=== PATIENT | female | born 1955 | race Caucasian/White ===

== ENCOUNTER 2018-02-03 07:43 | Day surgery (SDC) | payer BC, SELFPAY ==
[2018-02-01 12:09] VITALS: BMI 25.6
--- NOTE | 2018-02-03 | PATH_ITS ---
[facility] Accession Number: [id number] . 01 Material submitted: . CONE BIOPSY . 01 Clinical history: . CONE BIOPSY LEEP . 02 Diagnosis: Cervix, LEEP Biopsy: Squamous mucosa with patchy reactive atypia; negative for squamous dysplasia and malignancy. No endocervical tissue or definite transformation zone identified. Previous biopsy reviewed; findings do not correlate. Please see comment. MRV/02/06/2018 . 02 Comment: This patient's previous cervical biopsy slide (cervix at 7-8 o'clock; [id number]; 12/28/2017) was reviewed and high-grade squamous intraepithelial lesion (HSIL) is present in the previous biopsy. . No changes suggestive of previous instrumentation are identified in the current LEEP specimen. . A message was left with Dr. Bustillos's office staff at approximately 3:00 p.m. on 02-06-18. . 02 Electronically signed: . Remedios Trejo MD, Pathologist NPI- [id number] . 01 Gross description: . Received in formalin, labeled cone biopsy, anterior LEEP, long suture endocervical, are four pieces of cervical tissue. Piece #1 (1.6 x 1.1 x 0.3 cm) contains a long suture indicating 12 o'clock. Piece #2 (2.2 x 0.6 x 0.4 cm) contains a short suture indicating 6 o'clock. Pieces #3 (0.6 x 0.5 x 0.2 cm) and #4 (1.2 x 0.8 x 0.5 cm) are unoriented. The mucosa is crowder-pink, smooth and shiny. The resection margins are pale davison and finely granular. No nodules, masses or lesions are identified. Pieces #3 and #4 cannot be oriented. Ink code: black-deep; blue-radial; orange-os/endocervical canal; green-resection margin. Section code: Piece #1, radially sectioned and submitted clockwise from 9 o'clock-(A1) 9 o'clock to 12 o'clock; (A2) 12 o'clock to 3 o'clock; piece #2, radially sectioned and entirely submitted clockwise from 3 o'clock to 9 o'clock-(A3) 3 o'clock to 6 o'clock; (A4) 6 o'clock to 9 o'clock; (A5) piece #3, trisected; (A6) piece #4, serially sectioned. Specimen entirely submitted. ([id number]) /MRV . 02 Pathologist provided ICD-10: N87.1 . 02 CPT . 209469 Specimen Comment: A duplicate report has been generated due to demographic updates. Performed at: 01 [facility] [address] [facility], [place], [place] [id number] MD Rony Staples MD Phone: [phone] Performed at: [address] [facility] [address] [place], [place] [id number] MD Jaylen Dooley MD Phone: [phone]
[2018-02-03 08:01] VITALS: BMI 25.1
[2018-02-03 08:08] VITALS: BP 125/73; PULSE 67; RESP 20; TEMP 36.1; O2SAT 97
[2018-02-03] MEDS: LACTATED RINGERS 1,000 ML 42 ML IV (08:10)
--- NOTE | 2018-02-03 08:46 | SUR.OPER ---
Lithotomy on padded OR bed, head on pillow, arms secured on padded arm boards at <90 degrees abduction. Legs secured in padded yellow fins stirrups.
--- NOTE | 2018-02-03 08:53 | PM.PREOP ---
Pre-operative Note Interval Note Pre-op Check: Yes History & Physical exam performed today by Physician Changes: No
--- NOTE | 2018-02-03 08:55 | P.HP_ITS ---
History of Present Illness Date Patient Seen: 02/03/18 Time Patient Seen: 08:53 Chief complaint: [id number] Narrative: Patient is a 62-year-old who presents for LEEP cone biopsy of the cervix due to CRYSTAL 2-3 confirmed by colposcopic biopsy Patient History Medical History HPV test positive (Acute) History of PFTs (Acute) Hyperlipidemia (Acute) Obstructive lung disease (Acute) Postmenopausal (Acute) Surgical History History of heart surgery (Resolved) History of mandibular surgery (Resolved) History of third molar tooth extraction (Resolved) Family & Social History Social History: household members spouse Tobacco & Substance use: Smoking Status Former smoker alcohol intake current Substance Use Type does not use Meds Home Medications Medication Instructions Recorded Confirmed Type estradiol [Estrace] 1 gm VAGINAL SEE INSTRUCTIONS #30 04/05/16 02/03/18 Rx gm estradiol [Vagifem] 10 mcg VAGINAL SEE INSTRUCTIONS 11/18/16 02/03/18 Rx #20 tab Allergies Allergy/AdvReac Type Severity Reaction Status Date / Time Iodinated Contrast- Oral and Allergy Intermediate HIVES Verified 02/03/18 07:59 IV Dye [IODINATED CONTRAST MEDIA - IV DYE] Exam Vital Signs (past 8 hours): - 02/03/18 08:08 Temperature 97.0 F L Pulse Rate 67 Respiratory Rate 20 Blood Pressure 125/73 Pulse Oximetry 97 Oxygen Delivery Method Room Air Narrative Exam Narrative: HEENT: No thyromegaly, no anterior cervical or supraclavicular lymphadenopathy. Lungs:Clear to auscultation bilaterally, no wheezes. Cardiovascular: Regular rate and rhythm, no murmurs, rubs, or gallops. Abdomen: No scars. No hepatosplenomegaly. No masses palpable. External genitalia: Normal Vagina: Normal Cervix: Normal Bimanual exam: 6 Week size uterus. Mobile.] Rectal: No masses. 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 The risks including bleeding, and infection. She understands these risks and agrees to proceed. A full capital P AR-Q was held and consent form was signed.
[2018-02-03 09:35] VITALS: BP 109/66; PULSE 68; RESP 20; TEMP 36.2; O2SAT 100
[2018-02-03 09:40] VITALS: BP 110/71; PULSE 66; RESP 99; TEMP 36.2; O2SAT 16
[2018-02-03 09:45] VITALS: BP 117/73; PULSE 60; RESP 20; TEMP 36.4; O2SAT 100
[2018-02-03 09:50] VITALS: BP 115/72; PULSE 60; RESP 16; TEMP 36.4; O2SAT 99
[2018-02-03 10:15] VITALS: BP 123/75; PULSE 62; RESP 20; TEMP 36.2; O2SAT 96
--- NOTE | 2018-02-04 10:38 | P.OP_ITS ---
Operative Date/Time/Diagnoses Date of procedure: 02/03/18 Time of procedure: 09:45 Pre-op diagnosis: CRYSTAL 2-3 by colposcopic biopsy Post-op diagnosis: same Procedure: Procedures Operation Date: 02/03/18 08:45 Actual Procedures Side Surgeon p Conization Of Cervix - Cone Biopsy Treasure Bustillos MD s LEEP Procedure Treasure Bustillos MD Indications: CRYSTAL 2-3 by colposcopic biopsy Surgeon: Treasure Bustillos Anesthesia Type: General (LMA) Operative Notes Findings: Lugol's light areas surrounding the cervical os. Closure Type: not applicable Specimen(s): other (Anterior lip of the cervix tagged with a long suture, posterior lip of the cervix tagged with a short suture, endocervical component) Applied: catheter (In and out) Estimated blood loss (mL): 5 Blood products transfused: none Procedure in detail: After informed consent was obtained, the patient was taken to the operating room where she was placed in the dorsal supine position. After adequate LMA general anesthesia was achieved, she was placed in the dorsal lithotomy position, and prepped and draped in the usual sterile fashion. A plastic coated bivalve speculum was placed into the vagina. A plastic coated single-tooth tenaculum was placed on the anterior lip of the cervix. The cervix was coated with Lugol solution. There were Lugol's light areas surrounding the cervical os. Using the 1.5 cm loop with settings at 60 cut and 40 cautery, a swipe across the anterior lip of the cervix and posterior lip of the cervix removed the Lugol's light areas. A 3rd swipe in the endocervical canal was performed. The Bovie was used for hemostasis. The specimens were tagged with a long suture on the anterior lip of the cervix, and a short suture on the posterior lip of the cervix. The endocervical component was and tagged. The plastic coated single-tooth tenaculum was removed from the anterior lip of the cervix. The plastic coated bivalve speculum was removed from the vagina . Sponge, lap, and instrument counts were correct x2. The patient tolerated the procedure well, and was taken to PACU in stable condition. Complications: none Post-operative Condition: stable Disposition: PACU Plan for aftercare: Home after recovery
== END 2018-02-03 10:25 | disposition home or self-care (01) ==
PROVIDERS: Visit Provider Obstetrics & Gynecology
PROC: 0UBC7ZZ Excision of Cervix, Via Natural or Artificial Opening (ICD-10-PCS; CPT 57520; principal; 2018-02-03 08:45)
PROC: 0UBC7ZZ Excision of Cervix, Via Natural or Artificial Opening (ICD-10-PCS; CPT 57522; 2018-02-03 08:45)
DX: N87.1 Moderate cervical dysplasia (principal); R87.810 Cervical high risk human papillomavirus (HPV) DNA test positive; E78.5 Hyperlipidemia, unspecified; J44.9 Chronic obstructive pulmonary disease, unspecified; Z87.891 Personal history of nicotine dependence
CPT/HCPCS: 57522; J1100; J1885; J2405

== ENCOUNTER 2018-12-09 12:37 | Emergency (ER) | payer BC, SELFPAY ==
[2018-12-09 12:40] VITALS: BP 191/83; PULSE 71; RESP 20; TEMP 35.9; O2SAT 100
--- NOTE | 2018-12-09 12:46 | DI.RAD.S_ITS ---
PROCEDURE: XR CHEST 1V INDICATIONS: chest pain TECHNIQUE: One view of the chest was acquired. COMPARISON: [facility], , CHEST 2 VIEW, 03/20/2016, 12:13. None. FINDINGS: Surgical changes and devices: None. Lungs and pleura: Lungs are clear. No pleural effusions or pneumothorax. Mediastinum: Mediastinal contours appear normal. Heart size is normal. Bones and chest wall: No suspicious bony lesions. Overlying soft tissues appear unremarkable. IMPRESSION: Negative chest. No acute cardiopulmonary process is suspected. Dictated by: Omar Rodríguez M.D. on 12/09/2018 at 12:53 Approved by: Omar Rodríguez M.D. on 12/09/2018 at 12:54
[2018-12-09 13:30] VITALS: BP 142/70; PULSE 68; RESP 14; O2SAT 95
--- NOTE | 2018-12-09 13:30 | ED.CHESTPAIN ---
HPI - Chest Pain General Chief Complaint: Chest Pain Stated Complaint: chest pain/high b/p x45 minutes Time Seen by Provider: 12/09/18 12:45 Source: patient and family Mode of arrival: ambulatory Limitations: no limitations History of Present Illness HPI narrative: 63-year-old female nonsmoker with history of nonspecific pericardial effusion presents with a chief complaint of hypertension and anterior chest pain for 45 minutes prior to arrival. She denies any provocation, palliation or radiation of the pain. She denies any dizziness, weakness or lightheadedness. She denies nausea or vomiting. She denies any diaphoresis. She denies any exertional change in her symptoms. She historically does not have high blood pressure and this is very concerning to her. She denies recent travel, history of clot. MD complaint: chest pain Duration: constant Pain location: left chest Severity: mild Quality: sharp Pain radiation: none Relieving factors: nothing Exacerbating factors: nothing Related Data On Oral Contraceptives: No Previous Rx's Medication Instructions Recorded estradiol [Estrace] 1 gm VAGINAL SEE INSTRUCTIONS #30 04/05/16 gm estradiol 10 mcg vaginal tablet 10 mcg VAGINAL 2XW #8 tab 03/10/18 Allergies Allergy/AdvReac Type Severity Reaction Status Date / Time Iodinated Contrast- Oral and Allergy Intermediate HIVES Verified 03/09/18 16:44 IV Dye [IODINATED CONTRAST MEDIA - IV DYE] Review of Systems Constitutional Denies chills, Denies fever(s), Denies lethargy and Denies weakness Eyes Denies change in vision, Denies eye discharge, Denies irritation and Denies loss of vision ENT Ears, Nose, Mouth, and Throat: Denies change in voice, Denies neck pain and Denies sore throat Cardiovascular Reports chest pain, Denies irregular heart rhythm, Denies lightheadedness, Denies palpitations, Denies dyspnea, Denies dyspnea on exertion and Denies orthopnea Respiratory Denies cough, Denies dyspnea, Denies dyspnea on exertion and Denies wheezing Gastrointestinal Gastrointestinal: Denies abdominal pain, Denies change in bowel habits, Denies diarrhea, Denies nausea and Denies vomiting Genitourinary Denies hematuria, Denies flank pain, Denies urinary incontinence and Denies urinary urgency Musculoskeletal Denies neck pain Integumentary/Breasts Denies pruritus, Denies erythema, Denies rash and Denies wounds Neurologic Denies confusion, Denies loss of vision and Denies weakness Psychiatric Denies anxiety, Denies confusion, Denies depression, Denies homicidal ideation and Denies suicidal ideation Endocrine Denies palpitations Hematologic/Lymphatic Denies easy bruising Allergic/Immunologic Denies wheezing PFSH Medical History HPV test positive (Acute) History of PFTs (Acute) Hyperlipidemia (Acute) Obstructive lung disease (Acute) Postmenopausal (Acute) Surgical History History of heart surgery (Resolved) History of mandibular surgery (Resolved) History of third molar tooth extraction (Resolved) Social History household members: spouse Smoking Status: Former smoker alcohol intake: current Social History household members: spouse Smoking Status: Former smoker alcohol intake: current Exam Narrative Exam Narrative: GENERAL: [63] year old patient appears stated age. Well-nourished, well-developed patient, in mild distress. HEAD: Atraumatic. Normocephalic. EYES: Pupils equal round and reactive. Extraocular motions intact. No scleral icterus. No injection or drainage. ENT: Nose without bleeding, purulent drainage. Throat without erythema, tonsillar hypertrophy or exudate. Airway patent. NECK: Trachea midline. Non tender CARDIOVASCULAR: Regular rate and rhythm without murmurs, gallops, or rubs. RESPIRATORY: Clear to auscultation. Breath sounds equal bilaterally. No wheezes, rales, or rhonchi. GASTROINTESTINAL: Abdomen soft, non-tender, nondistended. EXTREMITIES: No edema or joint tenderness. BACK: Nontender without deformity or crepitance. No flank tenderness. NEURO: AOx3. SKIN: No rash or erythema of visible areas Initial Vital Signs Initial Vital Signs: Vital Signs Temperature 96.7 F L 12/09/18 12:40 Pulse Rate 71 12/09/18 12:40 Respiratory Rate 20 12/09/18 12:40 Blood Pressure 191/83 H 12/09/18 12:40 Pulse Oximetry 100 12/09/18 12:40 Course Course Narrative: Bedside ultrasound suggest perhaps a small pericardial effusion, for this reason and the potential of PE patient has CT angiogram of the chest ordered after she is pretreated for possible allergy to iodine Orders Ordered: Discontinued Medications Diphenhydramine HCl (Benadryl) 25 mg IV NOW ONE Stop: 12/09/18 14:02 Last Admin: 12/09/18 14:22 Dose: 25 mg Methylprednisolone (Solu-Medrol 125 Mg Vial) 125 mg IV NOW ONE Stop: 12/09/18 14:02 Last Admin: 12/09/18 14:22 Dose: 125 mg Reevaluation(s) Reevaluation #1: Over course of visit patient's blood pressure returns to normal and symptoms resolved. Vital Signs - 8 hr 12/09/18 12:40 Temperature 96.7 F L Pulse Rate 71 Respiratory Rate 20 Blood Pressure 191/83 H Pulse Oximetry 100 MDM - Chest Pain Lab Data Result diagrams: 12/09/18 13:25 12/09/18 13:25 Lab Results 12/09/18 12/09/18 12/09/18 Range/Units 13:25 13:25 13:25 WBC 3.6 L (4.5-11.0) X10^3/uL RBC 4.54 (4.0-5.2) X10^6/uL Hgb 13.4 (12.0-16.0) g/dL Hct 40.0 (36-46) % MCV 88.0 (80-100) fL MCH 29.4 (26-34) PG MCHC 33.4 (30-36) % RDW 13.0 (11.6-14.8) % Plt Count 129 L (150-400) X10^3/uL Neut % (Auto) 64.8 (50-75) % Lymph % (Auto) 24.0 L (25-40) % Holmes % (Auto) 8.0 (3-14) % Eos % (Auto) 2.4 (2-4) % Baso % (Auto) 0.8 (0-2) % Neut # (Auto) 2300 (9042-0676) /uL Lymph # (Auto) 900 L (4074-7991) /uL Holmes # (Auto) 300 (0-900) /uL Eos # (Auto) 100 (0-450) /uL Baso # (Auto) 0 (0-100) /uL PT 10.7 (10.1-12.7) SECONDS INR 0.9 (0.9-1.3) APTT 33 (26.4-36.2) SECONDS Sodium 142 (137-145) mmol/L Potassium 4.2 (3.4-5.1) mmol/L Chloride 104 (98-107) mmol/L Carbon Dioxide 29 (22-32) mmol/L BUN 17 (7-17) mg/dL Creatinine 0.70 (0.52-1.04) mg/dL Estimated GFR > 60.0 (>60) mL/min BUN/Creatinine Ratio 24.3 H (6-22) Glucose 100 (80-110) mg/dL Calcium 9.8 (8.4-10.2) mg/dL Total Bilirubin 0.7 (0.2-1.3) mg/dL AST 27 (14-36) IU/L ALT 20 (9-52) IU/L Alkaline Phosphatase 87 (38-126) U/L Total Creatine Kinase 117 (30-135) U/L CK-MB (CK-2) 1.14 (<2.37) ng/mL CK-MB (CK-2) Rel Index 1.0 L (1.5-5.0) % Troponin I < 0.012 (0.01-0.034) ng/mL Total Protein 7.9 (6.3-8.2) g/dL Albumin 4.8 (3.5-5.0) g/dL Globulin 3.1 (1.7-4.1) g/dL Albumin/Globulin Ratio 1.5 (1.0-2.8) Lipase 148 (23-300) U/L Imaging Data CT scan - chest: Radiologist's impression: [place] [address] CT Scan Report Signed Patient: Karley Cobian LMR#: [id number] : 5Acct:[id number] Age/Sex: 63 / FDate of Service: 12/09/18 Loc: ED Accession Number: [id number] Procedure: CT angio chest PE protocol Ordering Provider: Anant Pedro D.O. PROCEDURE: CT ANGIO CHEST PE PROTOCOL INDICATIONS: chest pain, SOB, ?pericardial effusion on bedside US TECHNIQUE: After the administration of intravenous contrast, 2 mm thick sections acquired from the pulmonary apices to the posterior costophrenic angles. 3-dimensional maximum intensity projection (MIP) coronal and sagittal reformats were then acquired through the thorax. For radiation dose reduction, the following was used: automated exposure control, adjustment of mA and/or kV according to patient size. COMPARISON: None. FINDINGS: Image quality: Diagnostic. Pulmonary arteries: Pulmonary arteries are normal in size, and demonstrate no intraluminal filling defects to suggest central pulmonary embolism. Lungs and pleura: Lungs are clear. No pleural effusions or pneumothorax. Central and peripheral airways are patent. Mild atelectasis is evident within the posterior bilateral lung bases. No lung masses or definite pulmonary nodules are evident. Mediastinum: Heart size is normal, without pericardial effusion. No mediastinal or hilar adenopathy. Thoracic aorta is normal in caliber and enhancement. Mild distal esophageal wall thickening is evident. No significant hiatal hernia is appreciated. Are Bones and chest wall: No suspicious bony lesions. Ribs and thoracic spine appear intact throughout. Thyroid gland is not enlarged or adequately evaluated. No axillary or supraclavicular adenopathy. Abdomen: Visualized upper abdominal solid organs appear normal in the early arterial phase of enhancement. IMPRESSION: 1. No evidence of pulmonary emboli. 2. No pericardial effusion is evident. 3. No acute cardiopulmonary process is apparent. 4. Mild thickening of the wall of the distal esophagus may be related to reflux esophagitis. Please correlate clinically. Dictated by: Omar Rodríguez M.D. on 12/09/2018 at 14:00 Approved by: Omar Rodríguez M.D. on 12/09/2018 at 14:03 [facility] Narrative Medical decision making narrative: Multiple etiologies for patient's symptoms considered including: [cardiac ischemia vs. pericardial effusion vs. PE vs. HTN vs. other] Patient's symptoms improved or duration of stay with above-stated therapies. Findings and discharge diagnosis discussed with patient/family followed by verbalization of understanding Return precautions discussed with patient/family whom verbalize understanding. Discharge Plan Departure Patient Disposition: Home Clinical Impression: Atypical chest pain Discharge Date/Time: 12/09/18 16:02 Interventions: ED Discharge Assessment Last Done: 12/09/18 16:01 Instructions: DI for Atypical Chest Pain Activity Restrictions/Additional Instructions: *You have been diagnosed with [atypical chest pain] *What to do: *Take medications as directed *Follow up with your primary care provider as planned *Return to ER if you should have any new, worsening or concerning symptoms Prescriptions: No Action estradiol [Estrace] 0.01 % cream 1 gm Vaginal SEE INSTRUCTIONS Qty: 30 RF: 3 estradiol [Vagifem] 10 mcg tablet 10 mcg Vaginal 2XW Qty: 8 RF: 11 Referrals: Lisbeth Vasquez MD [Primary Care Provider] -
[2018-12-09 13:31] LABS: Add Manual Diff / Slide Review NO; Basophils Absolute Auto 0 /uL (0-100); Basophils Percent Auto 0.8 % (0-2); Eosinophils Absolute Auto 100 /uL (0-450); Eosinophils Percent Auto 2.4 % (2-4); Hemoglobin 13.4 g/dL (12.0-16.0); Lymphocytes Absolute Auto 900 /uL (1100-4500); Mean Corpuscular HGB Conc 33.4 % (30-36); Mean Corpuscular Hemoglobin 29.4 PG (26-34); Monocytes Absolute Auto 300 /uL (0-900); Neutrophils Absolute Auto 2300 /uL (1500-7000); Neutrophils Percent Auto 64.8 % (50-75); Platelet Count 129 X10^3/uL (150-400); Red Blood Cell Count 4.54 X10^6/uL (4.0-5.2); White Blood Cell Count 3.6 X10^3/uL (4.5-11.0)
[2018-12-09 13:40] LABS: INR 0.9 (0.9-1.3); Prothrombin Time 10.7 SECONDS (10.1-12.7)
[2018-12-09 13:43] LABS: PTT Partial Thromboplastin Tim 33 SECONDS (26.4-36.2)
[2018-12-09 13:44] LABS: Alanine Aminotransferase 20 IU/L (9-52); Albumin 4.8 g/dL (3.5-5.0); Albumin Globulin Ratio 1.5 (1.0-2.8); Alkaline Phosphatase 87 U/L (38-126); Aspartate Aminotransferase 27 IU/L (14-36); BUN Creatinine Ratio 24.3 (6-22); Bilirubin Total 0.7 mg/dL (0.2-1.3); Blood Urea Nitrogen 17 mg/dL (7-17); Calcium 9.8 mg/dL (8.4-10.2); Carbon Dioxide 29 mmol/L (22-32); Chloride 104 mmol/L (98-107); Creatine Kinase 117 U/L (30-135); Estimated Glomerular Filt Rate > 60.0 mL/min (>60); Globulin 3.1 g/dL (1.7-4.1); Glucose 100 mg/dL (80-110); HEMOLYSIS < 15 (0-50); Lipase 148 U/L (23-300); Potassium 4.2 mmol/L (3.4-5.1); Sodium 142 mmol/L (137-145); Total Protein 7.9 g/dL (6.3-8.2)
[2018-12-09 13:56] LABS: Troponin I < 0.012 ng/mL (0.01-0.034)
[2018-12-09 13:59] LABS: Creatine Kinase MB 1.14 ng/mL (<2.37)
[2018-12-09 14:00] VITALS: BP 157/68; PULSE 60; RESP 13
--- NOTE | 2018-12-09 14:01 | DI.CT.S_ITS ---
PROCEDURE: CT ANGIO CHEST PE PROTOCOL INDICATIONS: chest pain, SOB, ?pericardial effusion on bedside US TECHNIQUE: After the administration of intravenous contrast, 2 mm thick sections acquired from the pulmonary apices to the posterior costophrenic angles. 3-dimensional maximum intensity projection (MIP) coronal and sagittal reformats were then acquired through the thorax. For radiation dose reduction, the following was used: automated exposure control, adjustment of mA and/or kV according to patient size. COMPARISON: None. FINDINGS: Image quality: Diagnostic. Pulmonary arteries: Pulmonary arteries are normal in size, and demonstrate no intraluminal filling defects to suggest central pulmonary embolism. Lungs and pleura: Lungs are clear. No pleural effusions or pneumothorax. Central and peripheral airways are patent. Mild atelectasis is evident within the posterior bilateral lung bases. No lung masses or definite pulmonary nodules are evident. Mediastinum: Heart size is normal, without pericardial effusion. No mediastinal or hilar adenopathy. Thoracic aorta is normal in caliber and enhancement. Mild distal esophageal wall thickening is evident. No significant hiatal hernia is appreciated. Are Bones and chest wall: No suspicious bony lesions. Ribs and thoracic spine appear intact throughout. Thyroid gland is not enlarged or adequately evaluated. No axillary or supraclavicular adenopathy. Abdomen: Visualized upper abdominal solid organs appear normal in the early arterial phase of enhancement. IMPRESSION: 1. No evidence of pulmonary emboli. 2. No pericardial effusion is evident. 3. No acute cardiopulmonary process is apparent. 4. Mild thickening of the wall of the distal esophagus may be related to reflux esophagitis. Please correlate clinically. Dictated by: Omar Rodríguez M.D. on 12/09/2018 at 14:00 Approved by: Omar Rodríguez M.D. on 12/09/2018 at 14:03
[2018-12-09] MEDS: methylPREDNISolone 125 MG/2 ML VIAL IV (14:22)
[2018-12-09] MEDS: diphenhydrAMINE 50 MG/ML VIAL 25 MG IV (14:22)
[2018-12-09 15:00] VITALS: BP 142/74; PULSE 61; RESP 15; O2SAT 98
[2018-12-09 15:30] VITALS: BP 130/75; PULSE 60
--- NOTE | 2018-12-10 07:54 | ED_ITS ---
HPI - Chest Pain General Chief Complaint: Chest Pain Stated Complaint: chest pain/high b/p x45 minutes Time Seen by Provider: 12/09/18 12:45 Source: patient and family Mode of arrival: ambulatory Limitations: no limitations History of Present Illness HPI narrative: 63-year-old female nonsmoker with history of nonspecific pericardial effusion presents with a chief complaint of hypertension and anterior chest pain for 45 minutes prior to arrival. She denies any provocation, palliation or radiation of the pain. She denies any dizziness, weakness or lightheadedness. She denies nausea or vomiting. She denies any diaphoresis. She denies any exertional change in her symptoms. She historically does not have high blood pressure and this is very concerning to her. She denies recent travel, history of clot. MD complaint: chest pain Duration: constant Pain location: left chest Severity: mild Quality: sharp Pain radiation: none Relieving factors: nothing Exacerbating factors: nothing Related Data On Oral Contraceptives: No Previous Rx's Medication Instructions Recorded estradiol [Estrace] 1 gm VAGINAL SEE INSTRUCTIONS #30 04/05/16 gm estradiol 10 mcg vaginal tablet 10 mcg VAGINAL 2XW #8 tab 03/10/18 Allergies Allergy/AdvReac Type Severity Reaction Status Date / Time Iodinated Contrast- Oral and Allergy Intermediate HIVES Verified 03/09/18 16:44 IV Dye [IODINATED CONTRAST MEDIA - IV DYE] Review of Systems Constitutional Denies chills, Denies fever(s), Denies lethargy and Denies weakness Eyes Denies change in vision, Denies eye discharge, Denies irritation and Denies loss of vision ENT Ears, Nose, Mouth, and Throat: Denies change in voice, Denies neck pain and Denies sore throat Cardiovascular Reports chest pain, Denies irregular heart rhythm, Denies lightheadedness, Denies palpitations, Denies dyspnea, Denies dyspnea on exertion and Denies orthopnea Respiratory Denies cough, Denies dyspnea, Denies dyspnea on exertion and Denies wheezing Gastrointestinal Gastrointestinal: Denies abdominal pain, Denies change in bowel habits, Denies diarrhea, Denies nausea and Denies vomiting Genitourinary Denies hematuria, Denies flank pain, Denies urinary incontinence and Denies urinary urgency Musculoskeletal Denies neck pain Integumentary/Breasts Denies pruritus, Denies erythema, Denies rash and Denies wounds Neurologic Denies confusion, Denies loss of vision and Denies weakness Psychiatric Denies anxiety, Denies confusion, Denies depression, Denies homicidal ideation and Denies suicidal ideation Endocrine Denies palpitations Hematologic/Lymphatic Denies easy bruising Allergic/Immunologic Denies wheezing PFSH Medical History HPV test positive (Acute) History of PFTs (Acute) Hyperlipidemia (Acute) Obstructive lung disease (Acute) Postmenopausal (Acute) Surgical History History of heart surgery (Resolved) History of mandibular surgery (Resolved) History of third molar tooth extraction (Resolved) Social History household members: spouse Smoking Status: Former smoker alcohol intake: current Social History household members: spouse Smoking Status: Former smoker alcohol intake: current Exam Narrative Exam Narrative: GENERAL: [63] year old patient appears stated age. Well- nourished, well-developed patient, in mild distress. HEAD: Atraumatic. Normocephalic. EYES: Pupils equal round and reactive. Extraocular motions intact. No scleral icterus. No injection or drainage. ENT: Nose without bleeding, purulent drainage. Throat without erythema, tonsillar hypertrophy or exudate. Airway patent. NECK: Trachea midline. Non tender CARDIOVASCULAR: Regular rate and rhythm without murmurs, gallops, or rubs. RESPIRATORY: Clear to auscultation. Breath sounds equal bilaterally. No wheezes, rales, or rhonchi. GASTROINTESTINAL: Abdomen soft, non-tender, nondistended. EXTREMITIES: No edema or joint tenderness. BACK: Nontender without deformity or crepitance. No flank tenderness. NEURO: AOx3. SKIN: No rash or erythema of visible areas Initial Vital Signs Initial Vital Signs: Vital Signs Temperature 96.7 F L 12/09/18 12:40 Pulse Rate 71 12/09/18 12:40 Respiratory Rate 20 12/09/18 12:40 Blood Pressure 191/83 H 12/09/18 12:40 Pulse Oximetry 100 12/09/18 12:40 Course Course Narrative: Bedside ultrasound suggest perhaps a small pericardial effusion, for this reason and the potential of PE patient has CT angiogram of the chest ordered after she is pretreated for possible allergy to iodine Orders Ordered: Discontinued Medications Diphenhydramine HCl (Benadryl) 25 mg IV NOW ONE Stop: 12/09/18 14:02 Last Admin: 12/09/18 14:22 Dose: 25 mg Methylprednisolone (Solu-Medrol 125 Mg Vial) 125 mg IV NOW ONE Stop: 12/09/18 14:02 Last Admin: 12/09/18 14:22 Dose: 125 mg Reevaluation(s) Reevaluation #1: Over course of visit patient's blood pressure returns to normal and symptoms resolved. Vital Signs - 8 hr 12/09/18 12:40 Temperature 96.7 F L Pulse Rate 71 Respiratory Rate 20 Blood Pressure 191/83 H Pulse Oximetry 100 MDM - Chest Pain Lab Data Result diagrams: 12/09/18 13:25 12/09/18 13:25 Lab Results 12/09/18 12/09/18 12/09/18 Range/Units 13:25 13:25 13:25 WBC 3.6 L (4.5-11.0) X10^3/uL RBC 4.54 (4.0-5.2) X10^6/uL Hgb 13.4 (12.0-16.0) g/dL Hct 40.0 (36-46) % MCV 88.0 (80-100) fL MCH 29.4 (26-34) PG MCHC 33.4 (30-36) % RDW 13.0 (11.6-14.8) % Plt Count 129 L (150-400) X10^3/uL Neut % (Auto) 64.8 (50-75) % Lymph % (Auto) 24.0 L (25-40) % Nobles % (Auto) 8.0 (3-14) % Eos % (Auto) 2.4 (2-4) % Baso % (Auto) 0.8 (0-2) % Neut # (Auto) 2300 (0774-4639) /uL Lymph # (Auto) 900 L (3727-2772) /uL Nobles # (Auto) 300 (0-900) /uL Eos # (Auto) 100 (0-450) /uL Baso # (Auto) 0 (0-100) /uL PT 10.7 (10.1-12.7) SECONDS INR 0.9 (0.9-1.3) APTT 33 (26.4-36.2) SECONDS Sodium 142 (137-145) mmol/L Potassium 4.2 (3.4-5.1) mmol/L Chloride 104 (98-107) mmol/L Carbon Dioxide 29 (22-32) mmol/L BUN 17 (7-17) mg/dL Creatinine 0.70 (0.52-1.04) mg/dL Estimated GFR > 60.0 (>60) mL/min BUN/Creatinine Ratio 24.3 H (6-22) Glucose 100 (80-110) mg/dL Calcium 9.8 (8.4-10.2) mg/dL Total Bilirubin 0.7 (0.2-1.3) mg/dL AST 27 (14-36) IU/L ALT 20 (9-52) IU/L Alkaline Phosphatase 87 (38-126) U/L Total Creatine Kinase 117 (30-135) U/L CK-MB (CK-2) 1.14 (<2.37) ng/mL CK-MB (CK-2) Rel Index 1.0 L (1.5-5.0) % Troponin I < 0.012 (0.01-0.034) ng/mL Total Protein 7.9 (6.3-8.2) g/dL Albumin 4.8 (3.5-5.0) g/dL Globulin 3.1 (1.7-4.1) g/dL Albumin/Globulin Ratio 1.5 (1.0-2.8) Lipase 148 (23-300) U/L Imaging Data CT scan - chest: Radiologist's impression: [place] [address] CT Scan Report Signed Patient: Karley Cobian LMR#: [id number] : 5Acct:[id number] Age/Sex: 63 / FDate of Service: 12/09/18 Loc: ED Accession Number: [id number] Procedure: CT angio chest PE protocol Ordering Provider: Anant Pedro D.O. PROCEDURE: CT ANGIO CHEST PE PROTOCOL INDICATIONS: chest pain, SOB, ?pericardial effusion on bedside US TECHNIQUE: After the administration of intravenous contrast, 2 mm thick sections acquired from the pulmonary apices to the posterior costophrenic angles. 3-dimensional maximum intensity projection (MIP) coronal and sagittal reformats were then acquired through the thorax. For radiation dose reduction, the following was used: automated exposure control, adjustment of mA and/or kV according to patient size. COMPARISON: None. FINDINGS: Image quality: Diagnostic. Pulmonary arteries: Pulmonary arteries are normal in size, and demonstrate no intraluminal filling defects to suggest central pulmonary embolism. Lungs and pleura: Lungs are clear. No pleural effusions or pneumothorax. Central and peripheral airways are patent. Mild atelectasis is evident within the posterior bilateral lung bases. No lung masses or definite pulmonary nodules are evident. Mediastinum: Heart size is normal, without pericardial effusion. No mediastinal or hilar adenopathy. Thoracic aorta is normal in caliber and enhancement. Mild distal esophageal wall thickening is evident. No significant hiatal hernia is appreciated. Are Bones and chest wall: No suspicious bony lesions. Ribs and thoracic spine appear intact throughout. Thyroid gland is not enlarged or adequately evaluated. No axillary or supraclavicular adenopathy. Abdomen: Visualized upper abdominal solid organs appear normal in the early arterial phase of enhancement. IMPRESSION: 1. No evidence of pulmonary emboli. 2. No pericardial effusion is evident. 3. No acute cardiopulmonary process is apparent. 4. Mild thickening of the wall of the distal esophagus may be related to reflux esophagitis. Please correlate clinically. Dictated by: Omar Rodríguez M.D. on 12/09/2018 at 14:00 Approved by: Omar Rodríguez M.D. on 12/09/2018 at 14:03 [facility] Narrative Medical decision making narrative: Multiple etiologies for patient's symptoms considered including: [cardiac ischemia vs. pericardial effusion vs. PE vs. HTN vs. other] Patient's symptoms improved or duration of stay with above-stated therapies. Findings and discharge diagnosis discussed with patient/family followed by tiffanie balization of understanding Return precautions discussed with patient/family whom verbalize understanding. Discharge Plan Departure Patient Disposition: Home Clinical Impression: Atypical chest pain Discharge Date/Time: 12/09/18 16:02 Interventions: ED Discharge Assessment Last Done: 12/09/18 16:01 Instructions: DI for Atypical Chest Pain Activity Restrictions/Additional Instructions: *You have been diagnosed with [atypical chest pain] *What to do: *Take medications as directed *Follow up with your primary care provider as planned *Return to ER if you should have any new, worsening or concerning symptoms Prescriptions: No Action estradiol [Estrace] 0.01 % cream 1 gm Vaginal SEE INSTRUCTIONS Qty: 30 RF: 3 estradiol [Vagifem] 10 mcg tablet 10 mcg Vaginal 2XW Qty: 8 RF: 11 Referrals: Lisbeth Vasquez MD [Primary Care Provider] -
== END 2018-12-09 16:02 | disposition home or self-care (01) ==
PROVIDERS: Emergency Provider Emergency Medicine; PCP Internal Medicine
DX: R07.89 Other chest pain (principal)
CPT/HCPCS: 36415; 36591; 71045; 71275; 80053; 82550; 82553; 83690; 84484; 85025; 85610; 85730; 93005; 93010; 96374; 96375; 99283; 99284; J1200; J2930; Q9967

== ENCOUNTER → 2022-11-22 11:21 | Outpatient (CLI) | payer MEDICARE, SELFPAY ==
--- NOTE | 2022-11-22 | DI.MG.S_ITS ---
BILATERAL DIGITAL SCREENING MAMMOGRAM 3D/2D WITH CAD: 11/22/2022 CLINICAL: Routine screening. Baseline exam. No prior exams were available for comparison. Both breasts are heterogeneously dense, which may obscure small masses (category c / 51-75% glandular tissue). Current study was also evaluated with a Computer Aided Detection (CAD) system. There is a focal asymmetry in the left breast at 1 o'clock middle depth. No other significant masses, calcifications, or other findings are seen in either breast. IMPRESSION: INCOMPLETE: NEEDS ADDITIONAL IMAGING EVALUATION The focal asymmetry in the left breast is indeterminate. Additional views with possible ultrasound are recommended. Based on the Tyrer Cuzick model (a risk assessment model) the patient's lifetime risk is 8.8% and her 10 year risk is 4.9%. According to the ACR, ACS, and NCCN guidelines, an annual breast MRI exam along with mammogram is recommended if the patient's lifetime risk is 20% or greater. This exam was interpreted at Station ID: [id number]. NOTE: For mammograms, a report in lay terms will be sent to the patient. Approximately 15% of breast malignancies will not be visualized mammographically. In the management of a palpable breast mass, a negative mammogram must not discourage biopsy of a clinically suspicious lesion. Electronically Signed By: Evens Joaquin M.D. lc/:11/22/2022 13:36:46 letter sent: Additional Imaging Needed ACR BI-RADS Category 0: Incomplete 3340F
--- NOTE | 2022-11-22 | DI.RAD.S_ITS ---
PROCEDURE: XR DEXA AXIAL SKELETON INDICATIONS: asymptomatic menopausal state COMPARISON: None. FINDINGS: This blank DEXA report has been sent in error by the PACS system. The correct and complete report will be forthcoming in 1-2 days. Thank you for your patience and understanding. Dictated by: Paco Seaman M.D. on 11/22/2022 at 13:35 Approved by: Paco Seaman M.D. on 11/22/2022 at 13:36
--- NOTE | 2022-11-22 11:37 | DI.DEXA.S_ITS ---
Bone Density Report Name: BRIAN CHRISTENSEN Age: 67 Sex: Female Ethnicity: White Date of : 1955 Indication: postmenopausal; screening for osteoporosis; Referring Provider: SERGIO SANCHEZ Study: Bone densitometry was performed. Exam Date: November 22, 2022 Accession number: [id number] Bone Density: Region BMD T-score Z-score Classification AP Spine(L1-L4) 1.017 -0.3 1.7 Normal Femoral Neck (Left) 0.836 -0.1 1.6 Normal Total Hip (Left) 0.984 0.3 1.8 Normal Femoral Neck (Right) 0.846 0.0 1.7 Normal Total Hip (Right) 0.979 0.3 1.7 Normal Total Hip Mean 0.982 0.3 1.8 Normal World Health Organization criteria for BMD impression classify patients as: Normal (T-score at or above -1.0), Osteopenia (T-score between -1.0 and -2.5), or Osteoporosis (T-score at or below -2.5). 10-year Fracture Risk: FRAX not reported because: All T-scores for Spine Total, Hip Total, Femoral Neck at or above -1.0 Impression: The patient has normal bone mass. Discussion: BONE DENSITY IS ABOVE THE MINIMUM DESIRABLE LEVEL AT ALL SKELETAL SITES TESTED. This patient?s bone mineral density is above the minimum desirable level (T-score -1.0 or better) at all sites measured. The patient should follow a healthful lifestyle (good nutrition with adequate calcium and vitamin D, and appropriate weight-bearing exercise). Follow-Up: Consider repeating this study in 5 years or sooner if there is some new clinical indication. Reported by: GABRIELA LEON M.D. on 11/22/2022 11:45:00 AM.
== END ==
PROVIDERS: PCP Internal Medicine; Referring Provider Internal Medicine; Visit Provider Internal Medicine
DX: Z12.31 Encounter for screening mammogram for malignant neoplasm of breast (principal); Z78.0 Asymptomatic menopausal state; Z13.820 Encounter for screening for osteoporosis
CPT/HCPCS: 77063; 77067; 77080

== ENCOUNTER 2022-12-15 13:54 | Day surgery (SDC) | payer MEDICARE, SELFPAY ==
[2022-12-15 14:15] VITALS: BP 152/74; PULSE 64; RESP 17; TEMP 36.4; O2SAT 98; BMI 25.8
--- NOTE | 2022-12-15 14:18 | PM.HP.1 ---
History of Present Illness History of Present Illness Date Patient Seen: 12/15/22 Chief complaint: Colonoscopy Narrative: Screening colonoscopy, known tracheal stenosis [facility] Medical History (Updated 12/24/18 @ 00:00 by ) History of PFTs HPV test positive Hyperlipidemia Obstructive lung disease Postmenopausal Surgical History History of heart surgery History of mandibular surgery History of third molar tooth extraction Social History household members: spouse Smoking Status: Former smoker alcohol intake: current Meds Home Medications and Allergies Home Medications Medication Instructions Recorded Confirmed Type estradiol 10 mcg vaginal tablet 10 mcg vaginal 2XW #24 tabs 08/31/22 Rx Allergies Allergy/AdvReac Type Severity Reaction Status Date / Time Iodinated Contrast Media Allergy Intermediate HIVES Verified 12/15/22 14:10 [IODINATED CONTRAST MEDIA - IV DYE] Exam Narrative Exam Narrative: Oropharynx free of lesions Chest clear to auscultation percussion Cardiac exam reveals no S3 or murmur Assessment & Plan Assessment & Plan narrative: Need for screening colonoscopy. Risks, benefits, alternatives have been explained. She also has a history of tracheal stenosis which will be closely monitored by Anesthesia
--- NOTE | 2022-12-15 14:19 | P.OP.COLON_ITS ---
Operative Date/Time/Diagnoses Date of procedure: 12/15/22 Pre-op diagnosis: See indication and findings Procedure & Clinicians Study performed: Colonoscopy Indications: Screening Surgeon: Michael Acuña Procedure Notes Procedure in detail: After informed consent was obtained the patient was placed in left lateral d ecubitus position. The video colonoscope was introduced the rectum slowly advanced cecum. On slow withdrawal mucosa was carefully examined. The scope was removed. The patient tolerated procedure well. Preparation was good. Blood loss none Complications none Sedation mac Findings 1. Normal colonoscopy to cecum although very tortuous colon. Follow-up colonoscopy should be in 10 years
[2022-12-15] MEDS: LACTATED RINGERS 1,000 ML 150 ML IV (14:29)
[2022-12-15 15:02] VITALS: BP 87/43; PULSE 60; RESP 10; TEMP 36.2; O2SAT 95
[2022-12-15 15:07] VITALS: BP 90/45; PULSE 58; RESP 10; O2SAT 95
[2022-12-15 15:12] VITALS: BP 100/54; PULSE 52; RESP 12; O2SAT 96
[2022-12-15 15:17] VITALS: BP 104/65; PULSE 55; RESP 16; O2SAT 96
[2022-12-15 15:23] VITALS: BP 118/70; PULSE 54; RESP 14; O2SAT 96
== END 2022-12-15 15:37 | disposition home or self-care (01) ==
PROVIDERS: PCP Internal Medicine; Referring Provider Internal Medicine Gastroenterology; Visit Provider Internal Medicine Gastroenterology
PROC: 0DJD8ZZ Inspection of Lower Intestinal Tract, Via Natural or Artificial Opening Endoscopic (ICD-10-PCS; CPT 45378; principal; 2022-12-15 15:00)
DX: Z12.11 Encounter for screening for malignant neoplasm of colon (principal)
CPT/HCPCS: G0121; J2704

== ENCOUNTER → 2022-12-27 09:30 | Outpatient (CLI) | payer MEDICARE, SELFPAY ==
--- NOTE | 2022-12-27 | DI.RAD.S_ITS ---
PROCEDURE: XR HAND RT 2V INDICATIONS: Pain in right finger(s) TECHNIQUE: Two views of the hand acquired. COMPARISON: None. FINDINGS: Bones: Mild focal flexion of the third distal interphalangeal joint, with a possible nondisplaced intra-articular fracture at the dorsal base of the 3rd distal phalanx. Carpal bones are normally aligned. No suspicious bony lesions. Soft tissues: No suspicious soft tissue calcifications. IMPRESSION: Suspected nondisplaced intra-articular fracture at the dorsal base of the 3rd distal phalanx with mild flexion of the distal interphalangeal joint. Approved by: Joe Clark M.D. on 12/27/2022 at 14:56
--- NOTE | 2022-12-27 | DI.MG.S_ITS ---
UNILATERAL LEFT DIGITAL DIAGNOSTIC MAMMOGRAM 3D/2D WITH ADDITIONAL VIEWS: 12/27/2022 CLINICAL: Additional evaluation requested from prior study. Comparison is made to exam dated: 11/22/2022 mammogram - [facility]. The left breast is heterogeneously dense, which may obscure small masses (category c / 51-75% glandular tissue). There is a focal asymmetry in the left breast at 1 o'clock middle depth. This is not seen in additional views. No other significant masses or calcifications are seen in the breast. IMPRESSION: BENIGN There is no mammographic evidence of malignancy. The focal asymmetry in the left breast is consistent with fibroglandular tissue and is benign. A 1 year screening mammogram is recommended. Exam findings were conveyed to the patient. Based on the Tyrer Cuzick model (a risk assessment model) the patient's lifetime risk is 8.8% and her 10 year risk is 4.9%. According to the ACR, ACS, and NCCN guidelines, an annual breast MRI exam along with mammogram is recommended if the patient's lifetime risk is 20% or greater. This exam was interpreted at Station ID: [id number]. NOTE: For mammograms, a report in lay terms will be sent to the patient. Approximately 15% of breast malignancies will not be visualized mammographically. In the management of a palpable breast mass, a negative mammogram must not discourage biopsy of a clinically suspicious lesion. Electronically Signed By: Adarsh Oliveira M.D. slc/:12/27/2022 10:04:24 letter sent: Normal Exam ACR BI-RADS Category 2: Benign Finding(s) 3342F
== END ==
PROVIDERS: PCP Internal Medicine; Referring Provider Internal Medicine; Visit Provider Internal Medicine
DX: R92.8 Other abnormal and inconclusive findings on diagnostic imaging of breast (principal); M79.644 Pain in right finger(s); N64.89 Other specified disorders of breast
CPT/HCPCS: 73120; 77065; G0279

== ENCOUNTER → 2024-02-07 16:55 | Outpatient (CLI) | payer MEDICARE, SELFPAY ==
--- NOTE | 2024-02-07 16:56 | DI.RAD.S_ITS ---
PROCEDURE: XR CHEST 2V INDICATIONS: Shortness of breath TECHNIQUE: 2 views of the chest were acquired. COMPARISON: None. FINDINGS: Surgical changes and devices: None. Lungs and pleura: Lungs are clear. No pleural effusions or pneumothorax. Mediastinum: Mediastinal contours are normal. Heart size is normal. Bones and chest wall: No suspicious bony abnormalities. Soft tissues appear unremarkable. IMPRESSION: No acute cardiopulmonary abnormality is seen. Dictated by: Rajat Chaney M.D. on 02/08/2024 at 9:30 Approved by: Rajat Chaney M.D. on 02/08/2024 at 9:30
== END ==
PROVIDERS: PCP Internal Medicine; Referring Provider Internal Medicine; Visit Provider Internal Medicine
DX: R06.02 Shortness of breath (principal)
CPT/HCPCS: 71046

== ENCOUNTER 2025-01-01 09:04 | Day surgery (SDC) | payer MEDICARE, SELFPAY ==
[2024-12-25 12:02] VITALS: BMI 26.5
--- NOTE | 2025-01-01 | PATH_ITS ---
[facility] Accession Number: [id number] No. of containers..02 Tissue . 01 Material submitted: . PART A: cervix - CONE BX PART B: vulva - VULVAR BX @ 5 OCLOCK . 01 Diagnosis: A. UTERINE CERVIX, COLD KNIFE CONIZATION (SUTURE AT 12 O'CLOCK): High-grade squamous intraepithelial lesion (CRYSTAL-2 to CRYSTAL-3/moderate to severe squamous dysplasia). Background low-grade squamous intraepithelial lesion (CRYSTAL-1/mild dysplasia) and previous biopsy changes. Negative for glandular dysplasia and invasive carcinoma. Surgical margins: High-grade squamous intraepithelial lesion focally involves the inked/cauterized ectocervical margin. Remaining margins are not involved. Please see microscopic description. . B. VULVA, 5 O'CLOCK, BIOPSY: High-grade squamous intraepithelial lesion (GILDA-2/moderate dysplasia). Please see microscopic description. Negative for invasive carcinoma. High-grade squamous intraepithelial lesion (GILDA-2/moderate dysplasia) extends to one tissue edge. [facility] 01/10/2025 1052 Local . 01 Comment: B. As part of ongoing corporate quality assurance manager, part B is also reviewed by Dr. Patricio Ly, who agrees with the interpretation. . 01 Electronically signed: . Akanksha Florez MD, Pathologist NPI- [id number] . 01 Gross description: . A. Received in formalin, labeled with two patient identifiers and cold knife cone biopsy, suture at 12 o'clock, and consists of a 2.7 x 2.1 x 1.2 cm, intact, oriented cervical cone. The stitch is designated as 12 o'clock. The cervical mucosa is davison-white with a 0.8 x 0.6 cm slight area of ulceration located at the 5-6 o'clock aspect. There is a 0.6 cm, slit-like, patent os. The endocervical margin is inked blue. The ectocervical cauterized margin is inked black. The specimen is radially sectioned and entirely submitted in cassettes: A1: 12-3 o'clock. A2: 3-6 o'clock. A3: 6-9 o'clock. A4: 9-12 o'clock. B. Received in formalin, labeled with two patient identifiers and vulvar biopsy at 5 o'clock, and consists of a 1.2 x 0.5 x 0.2 cm, white, smooth, glistening, irregular soft tissue which is inked, trisected, and entirely submitted in cassette B1. ([id number]) /[facility] 01/05/2025 1042 Local . 01 Microscopic: . A. P16 immunostain is performed (blocks A2, A3, And A4) and supports the diagnosis. . B. To better evaluate the areas of high-grade squamous intraepithelial lesion (GILDA-2/moderate dysplasia) and to assess the tissue edge involvement, multiple deeper levels and immunostains are performed with the following results: p16 is abnormal with weak overexpression on the areas of GILDA-2, the proliferation marker Ki-67 appears focally mildly increased labeling dysplastic cells above the basal cell layer, and p53 shows rare weak expression, unmutated/wild type. These immunohistochemical results along with the morphology support the diagnosis. . . * This test was developed and the performance characteristics were validated by [facility]. It has not been cleared or approved by the U.S. Food and Drug Administration. . 01 Pathologist provided ICD-10: N87.9, N87.1, D06.9 . 01 CPT . 797072, 627023, B63590, F23681 Specimen Comment: A courtesy copy of this report has been sent to [facility] Performed at: [address] [facility], [place], [place] [id number] MD Rony Staples MD Phone: [phone]
[2025-01-01 09:26] VITALS: BP 143/65; PULSE 58; RESP 16; TEMP 36.5; O2SAT 100; BMI 26.2
--- NOTE | 2025-01-01 09:37 | P.HPOB_ITS ---
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 She reports feeling well, no concerns today. [facility] Medical History (Updated 12/25/24 @ 15:31 by Diamond Ruiz RN) Stenosis of trachea Acid reflux Paroxysmal atrial flutter Personal history of cervical dysplasia Hyperlipidemia Obstructive lung disease History of PFTs Postmenopausal HPV test positive Surgical History (Updated 12/26/24 @ 08:49 by Diamond Ruiz RN) Hx of colonoscopy (12/15/22) S/P pericardiocentesis History of cardiac radiofrequency ablation (09/25/24) History of loop electrical excision procedure (LEEP) (~2018) History of mandibular surgery History of third molar tooth extraction Social History household members: spouse Smoking Status: Former smoker alcohol intake: current Meds Home Medications and Allergies Home Medications ?Medication ?Instructions ?Recorded ?Confirmed ?Type estradiol 10 mcg vaginal tablet 10 mcg vaginal 2XW #24 tabs 03/28/23 01/01/25 Rx apixaban 5 mg tablet (Eliquis) 5 mg PO BID 10/16/24 History atorvastatin 40 mg tablet 40 mg PO DAILY 10/16/2406/26 History estradiol 0.01% (0.1 mg/gram) 1 g vaginal 2XW #42.5 gr ams 10/16/24 01/01/25 Rx vaginal cream Allergies Allergy/AdvReac Type Severity Reaction Status Date / Time Iodinated Contrast Media Allergy Intermediate HIVES Verified 01/01/25 09:18 (IODINATED CONTRAST MEDIA - IV DYE) Review of Systems Review of Systems ROS: Yes All systems reviewed with the patient and are negative except as otherwise documented Exam Vital Signs (past 8 hours): - 01/01/25 09:26 Temperature 97.7 F Pulse Rate 58 L Respiratory Rate 16 Blood Pressure 143/65 H Pulse Oximetry 100 Oxygen Delivery Method Room Air Oxygen Delivery Method Room Air Const General: comfortable and No acute distress Orientation: alert, awake and oriented x3 Resp Effort & Inspection: normal respiratory effort and able to speak in complete sentences Skin Rashes: no rashes Neuro Cognition: normal cognition Speech: speech normal Psych Mood: congruent mood Affect: normal affect Assessment & Plan Assessment and plan (1) CRYSTAL III (cervical intraepithelial neoplasia grade III) with severe dysplasia: Status: Acute Assessment & Plan narrative: 69yo F with CRYSTAL 2-3 on recent biopsies, as well as history of LEEP in 2018, here for repeat LEEP with possible CKC. We reviewed the surgical consent and signed today. Also discussed postop expectations. -plan for same day surgery -follow-up based on pathology results from today Surgery consent We discussed the risks/benefits/alternatives to the proposed procedure, to include but not limited to: -risk of bleeding, requiring medications, blood products, or other procedures as indicated -risk of infection, requiring prolonged hospital stay or other procedures -risk of injury to other structures, including bowel, bladder, blood vessels, nerves, etc. which may also require additional procedures -risk of adverse reaction to anesthesia or medications -risk of venous thromboembolism and associated sequelae -risk of rare complications such as cardiac arrest, or extremely rarely, Patient is aware of the risks, and desires to proceed with planned surgical procedure. Time-Based Coding :: [TOTAL MINUTES] spent with patient and on the chart (including review of chart, obtaining history, exam, reviewing outside data, placing orders, documenting exam and treatment plan, and counseling patient) on [DATE].
[2025-01-01] MEDS: LACTATED RINGERS 1,000 ML 42 ML IV (09:42)
[2025-01-01] MEDS: ACETAMINOPHEN 325 MG TABLET 975 MG PO (09:53)
--- NOTE | 2025-01-01 10:19 | SUR.OPER ---
Lithotomy on padded OR bed, head on pillow, arms secured on padded arm boards at <90 degrees abduction. Legs secured in padded yellow fins stirrups. strap across waist
[2025-01-01] MEDS: ACETIC ACID 500 ML IRRIG 20 ML TOP (10:24)
[2025-01-01] MEDS: LIDOCAINE 1% W/EPI 10ML 20 ML INJ (10:25)
[2025-01-01] MEDS: FERRIC SUBSULFATE 8 ML SOLUTION TOP (10:26)
--- NOTE | 2025-01-01 10:58 | P.OP_ITS ---
Operative Date/Time/Diagnoses Date of procedure: 01/01/25 Time of procedure: 10:00 Pre-op diagnosis: Cervical intraepithelial neoplasia II-III Post-op diagnosis: same Procedure & Clinicians Procedure: Cervical cold knife conization Vulvar biopsy Same procedure(s) as scheduled: Yes Indications: 69yo F with high grade cervical dysplasia, admitted for repeat cervical excisional biopsy. Surgeon: Sera Blue Click Yes if Unassisted: Yes Anesthesia Type: General Operative Notes Findings: Acetowhite changes circumferentially at the transformation zone of the cervix. Cervix flush with the vaginal wall. Acetowhite changes and plaque-like change noted at 5 o'clock at the vaginal introitus. Specimen(s): other (1. cold knife conization; 2. vulvar biopsy) Applied: none Estimated Blood Loss (mL): 10 Blood products transfused: none Procedure in detail: The risks, benefits, indications and alternatives of the procedure were reviewed w/the patient & informed consent was obtained. The pt was taken to the operating room where general anesthesia was obtained without difficulty. The pt was then placed in the low lithotomy position using yellowfin stir-ups. The patient was then prepped and draped in the sterile fashion. A sterile Graves speculum was then placed into the vagina and the cervix was visualized. Acetic acid was then applied to the cervix, and the above changes were noted. A weighted speculum was then placed into the vagina and the cervix was visualized. A single tooth tenaculum was placed on the anterior lip of the cervix to help manipulate the cervix. An endocervical block was then performed circumferentially using approximately 10cc of lidocaine with epinephrine. A circumferential incision was then made using a Olmsted blade, beginning posteriorly and working clock-daniel. The specimen was then fully excised and an identifying suture was placed at the 12 o?clock position of the specimen prior to sending to pathology for permanent section. Superficial electrocoagulation of the cervical stroma was performed, followed by application of copious amounts of monsel?s solution. Hemostasis was noted. All instruments were then removed from the vagina. The vulvar lesion was then injected superficially with local anesthetic, and a shave biopsy was performed with the knife. Bovie cautery was used to achieve hemostasis, and the area was closed with 2 interrupted sutures of 3-0 vicryl. At the completion of the case the sponge and needle counts were correct x 2. The patient tolerated the procedure well and was taken to the PACU in stable condition. Complications: none Post-operative Condition: stable Disposition: PACU Plan for aftercare: Discharge to home once meeting PACU criteria.
[2025-01-01 11:00] VITALS: BP 141/72; PULSE 89; RESP 12; TEMP 36.1; O2SAT 96
[2025-01-01 11:07] VITALS: BP 135/77; PULSE 80; RESP 15; TEMP 36.1; O2SAT 100
[2025-01-01 11:17] VITALS: BP 135/76; PULSE 79; RESP 12; TEMP 36.2; O2SAT 97
--- NOTE | 2025-01-01 11:28 | SUR.PHASEII ---
Assumed care at 1128 from Ernie Cottrell RN
[2025-01-01 11:39] VITALS: BP 139/68; PULSE 77; RESP 16; TEMP 36.1; O2SAT 96
== END 2025-01-01 12:05 | disposition home or self-care (01) ==
PROVIDERS: PCP Internal Medicine; Referring Provider Student in an Organized Health Care Education/Training Program; Visit Provider Student in an Organized Health Care Education/Training Program
PROC: 0UBC7ZZ Excision of Cervix, Via Natural or Artificial Opening (ICD-10-PCS; CPT 57522; principal; 2025-01-01 10:15)
DX: D06.1 Carcinoma in situ of exocervix (principal); I48.92 Unspecified atrial flutter; E78.5 Hyperlipidemia, unspecified; Z79.01 Long term (current) use of anticoagulants; Z87.891 Personal history of nicotine dependence; N90.1 Moderate vulvar dysplasia
CPT/HCPCS: 57520; 56605; A9270; J1885; J2405; J2704